=== PATIENT | female | born 1980 | race Caucasian/White ===

== ENCOUNTER 2016-07-02 22:05 | Emergency (ER) | payer MEDICAID | END 2016-07-03 00:05 | disposition home or self-care (01) | LOC: D.ER 22:05 | DX: J20.9 Acute bronchitis, unspecified (principal); Z3A.01 Less than 8 weeks gestation of pregnancy ==

== ENCOUNTER → 2017-12-02 09:44 | Outpatient (CLI) | payer MEDICAID | END | disposition home or self-care (01) | LOC: D.MRI 09:44 | DX: M54.5 Low back pain (principal) ==

== ENCOUNTER 2018-02-23 20:02 | Emergency (ER) | payer MEDICAID ==
[2018-02-23 20:04] VITALS: Wt 90.9 kg
[2018-02-23] MEDS ORDERED: EC-NAPROSYN500 MG PO (20:07)
[2018-02-23] MEDS ORDERED: ADIPEX-P37.5 MG PO (20:08)
[2018-02-23] MEDS ORDERED: IBUPROFEN600 MG PO (20:08)
[2018-02-23] MEDS ORDERED: SEROQUEL25 MG PO (20:09)
[2018-02-23] MEDS ORDERED: EFFEXOR XR37.5 MG PO (20:10)
[2018-02-23 21:26] LABS: BASOPHILS 0.2 % (0-2); EOSINOPHILS 0.8 % (0-7); HEMOGLOBIN 14.6 g/dL (12-16); IMMATURE GRANULOCYTES 0.2 % (0-5); MCH 33.7 pg (26.0-34.0); MCHC 34.8 g/dL (31.0-37.0); MEAN PLATELET VOLUME 8.8 fL (7.4-10.4); MONOCYTES 5.4 % (2-11); NEUTROPHILS 57.4 % (40-80); PLATELET COUNT 364 10x3/uL (130-400); RBC 4.33 10x6/uL (4.00-5.40); RDW 12.2 % (11.5-14.5); WBC 9.8 10x3/uL (4.8-10.8)
[2018-02-23 21:42] LABS: UDS - AMPHET NEGATIVE QUAL (NEGATIVE); UDS - BARB NEGATIVE QUAL (NEGATIVE); UDS - BENZO NEGATIVE QUAL (NEGATIVE); UDS - COCAINE NEGATIVE QUAL (NEGATIVE); UDS - OPIATE NEGATIVE QUAL (NEGATIVE); UDS - PCP NEGATIVE QUAL (NEGATIVE); UDS - THC POSITIVE QUAL (NEGATIVE)
[2018-02-23 21:46] LABS: ALBUMIN 3.9 g/dL (3.4-5.0); ALKALINE PHOSPHATASE 49 U/L (46-116); ALT (SGPT) 17 U/L (10-68); BILIRUBIN - TOTAL 0.22 mg/dL (0.2-1.3); CALC OSMOLALITY 279 mosm/kg (275-300); CALCIUM 8.4 mg/dL (8.5-10.1); CARBON DIOXIDE 20.2 mmol/L (21.0-32.0); CHLORIDE - SERUM 105 mmol/L (98-107); CREATININE - SERUM 0.9 mg/dL (0.6-1.3); GLUCOSE 118 mg/dL (74-106); POTASSIUM - SERUM 3.4 mmol/L (3.5-5.1); PROTEIN - SERUM 7.4 g/dL (6.4-8.2); SODIUM 141 mmol/L (136-145); UREA NITROGEN 7 mg/dL (7-18); eGFR NON AFRICAN AMERICAN 74 mL/min (90-120)
[2018-02-23 21:51] LABS: APPEARANCE CLEAR (CLEAR); BILIRUBIN NEGATIVE (NEGATIVE); COLOR YELLOW (YELLOW); GLUCOSE NEGATIVE (NEGATIVE); KETONE NEGATIVE (NEGATIVE); NITRITE NEGATIVE (NEGATIVE); PROTEIN NEGATIVE (NEGATIVE); UROBILINOGEN NORMAL (NORMAL)
[2018-02-23 21:52] LABS: WHITE CELLS - URINE 0-5 /hpf (0-5)
[2018-02-23 21:54] LABS: RED CELLS - URINE 0-5 /hpf (0-5)
[2018-02-23 22:00] LABS: CKMB 0.5 U/L (0.0-3.6); CREATINE KINASE 79 UL (21-215); MAGNESIUM - SERUM 1.9 mg/dL (1.8-2.4); TROPONIN-I < 0.017 ng/mL (0.000-0.060)
[2018-02-24 10:22] VITALS: BP 98/058
== END 2018-02-24 10:24 ==
LOC: D.ER 20:02
PROVIDERS: Family Medicine
DX: R45.851 Suicidal ideations (principal); F23 Brief psychotic disorder; F17.200 Nicotine dependence, unspecified, uncomplicated; R00.0 Tachycardia, unspecified